=== PATIENT | male | born 1980 | race Caucasian/White ===

== ENCOUNTER 2017-09-29 02:43 | Inpatient (IN) | payer SELFPAY ==
[2017-09-29] MEDS ORDERED: Ondansetron HCl/PF 4 MG/2 ML Vial IVP PRN (03:47)
[2017-09-29 03:48] LABS: Hemoglobin 10.6 g/dL (14.0-18.0); Mean Corpuscular HGB CONC 34.9 g/dL (32.0-36.0); Mean Corpuscular Hemoglobin 33.4 pg (27.0-31.0); Mean Corpuscular Volume 95.6 fL (78.0-98.0); Mean Platelet Volume 8.7 fL (7.4-10.4); Platelet Count 147 thou/uL (130-400); Red Blood Cell (RBC) Count 3.18 mill/uL (4.70-6.10); White Blood Cell (WBC) Count 4.3 thou/uL (4.8-10.8)
[2017-09-29 03:58] LABS: ALT (SGPT) 14 U/L (8-55); AST (SGOT) 13 U/L (5-34); Acetaminophen Less than 6.0 mcg/mL (10.0-30.0); Albumin 3.4 g/dL (3.5-5.0); Alcohol 157 mg/dL (Less than 10); Alkaline Phosphatase 44 U/L (40-150); Anion Gap 11 mmol/L (10-20); BUN (Urea Nitrogen) 9 mg/dL (8.9-20.6); Bilirubin, Total 0.3 mg/dL (0.2-1.2); CK (CPK) 112 U/L (30-200); Calc. Creatinine Clearance 0 mL/min (70-130); Calcium 7.6 mg/dL (7.8-10.44); Carbon Dioxide 24 mmol/L (22-29); Chloride 113 mmol/L (98-107); Estimated GFR-MDRD 79; Globulin 1.8 g/dL (2.4-3.5); Glucose 95 mg/dL (70-105); Potassium 3.5 mmol/L (3.5-5.1); Protein, Total 5.2 g/dL (6.0-8.3); Salicylate Less than 8.0 mg/dL (15.0-30.0); Sodium 144 mmol/L (136-145)
[2017-09-29] MEDS ORDERED: Sodium Chloride 0.9% 1,000 ML IV SCH (04:00)
[2017-09-29 04:19] LABS: Band 3 % (5-11); Eosinophils 1 % (0-10); Lymphocytes 57 % (21-51); MDiff Complete? YES; Monocytes 7 % (0-10); Neutrophil 32 % (42-75)
[2017-09-29 07:19] LABS: Bilirubin Negative (Negative); Blood, Urine Negative (Negative); Clarity CLEAR (Clear); Glucose, Urine (Dipstick) Negative (Negative); Leukocyte Negative (Negative); Nitrite Negative (Negative); Protein, Urine (Dipstick) Negative (Neg-Trace); Specific Gravity, Urine 1.007 (1.002-1.036); Urobilinogen 0.2 mg/dL (0.2-1.0); pH, Urine 6.5 (5.0-9.0)
[2017-09-29 07:31] LABS: Amphetamine Not Detected (NotDetected); Barbiturates Screen Not Detected (NotDetected); Benzodiazepine Screen Not Detected (NotDetected); Cocaine Metabolite Screen Not Detected (NotDetected); Medtox Control Line Valid? VALID (VALID); Medtox Reader # READER 4; Methadone Not Detected (NotDetected); Methamphetamine Not Detected (NotDetected); Opiate Screen Not Detected (NotDetected); Oxycodone Screen Not Detected (NotDetected); Phencyclidine (PCP) Not Detected (NotDetected); THC/Cannabinoid Screen Detected (NotDetected); Tricyclic Screen Not Detected (NotDetected)
[2017-09-29] MEDS ORDERED: Mag-Al 1200 mg/1200 mg/30 ML UDCUP PO PRN (08:23)
[2017-09-29] MEDS ORDERED: Loperamide HCl 2 MG CAP PO PRN (08:23)
[2017-09-29] MEDS ORDERED: Senokot 8.6 MG TAB PO PRN (08:23)
[2017-09-29] MEDS ORDERED: Ondansetron ODT 4 MG TAB PO PRN (08:23)
[2017-09-29] MEDS ORDERED: HYDROcodone/Acetaminophen 5/325 mg Tablet PO PRN (08:23)
[2017-09-29] MEDS ORDERED: Milk Of Magnesia 30 ML UDCUP PO PRN (08:23)
[2017-09-29] MEDS ORDERED: Acetaminophen 325 MG TAB PO PRN (08:23)
[2017-09-29] MEDS ORDERED: Enoxaparin Sodium 40 MG/0.4 ML SYRINGE SC SCH (09:00)
[2017-09-29] MEDS ORDERED: Cyanocobalamin (Vitamin B-12) 1,000 MCG TAB PO SCH (09:00)
[2017-09-29] MEDS ORDERED: Famotidine 20 MG TAB PO SCH (09:00)
[2017-09-29] MEDS ORDERED: Folic Acid 1 MG TAB PO SCH (09:00)
[2017-09-29] MEDS ORDERED: Famotidine 20 MG TAB ONE ×2 (09:45→22:32)
[2017-09-29] MEDS ORDERED: Folic Acid 1 MG TAB ONE (09:45)
--- NOTE | 2017-09-29 10:31 | HP ---
PRIMARY CARE PHYSICIAN: The patient does not have any primary care physician. He is only following [facility]. REASON FOR ADMISSION: Altered mental status, suspected drug overdose, suspected suicidal attempt. HISTORY OF PRESENT ILLNESS: A 37-year-old male who has underlying history of psychiatric disorder. Based on medications, it seems like he has anxiety, depression and bipolar disorder who was brought t o emergency room last night for drug overdose and suspected a suicidal attempt. He was transferred f [facility] as per ED report. Paramedics reported that he took unknown amount of pil ls. When he was brought to Emergency Room, he had smell of alcohol and he was somnolent. He was not able to provide any history. The patient was hemodynamically stable and he was planned for admissio n to medical ICU for close monitoring. I saw this patient around 8:00 a.m., at that time, patient wa s alert, awake, follows command and I specifically asked how many pills he took. He reported that he only took a couple of extra of his prescription medicine which he was given by his psychiatrist. He denies any excessive overdose of any medications. He denies any suicidal ideation or homicidal idea tion. He does have anxiety and depression, but he feels that with the medicine, he is stable. He uribe s previous history of inpatient psychiatric hospitalization in [place] as well as [place] [facility] in [place] . Currently, patient feels perfectly fine. He reports that before coming to the hospital, he also d rank alcohol. That made him more sleepy and lethargic. He denies any other illicit drug abuse other than marijuana, which he abuses periodically. He denies any UTI symptoms. He denies any cough, chest pain, palpitation, shortness of breath. He d enies any constipation, diarrhea, melena, hematochezia. He denies any headache. He denies any fall. He denies any pain anywhere in his body. He denies any injury. REVIEW OF SYSTEMS: The following complete review of systems was negative, unless otherwise mentioned in the HPI or below: Constitutional: Weight loss or gain, ability to conduct usual activities. Skin: Rash, itching. Eyes: Double vision, pain. ENT/Mouth: Nose bleeding, neck stiffness, pain, tenderness. Cardiovascular: Palpitations, dyspnea on exertion, orthopnea. Respiratory: Shortness of breath, wheezing, cough, hemoptysis, fever or night sweats. Gastrointestinal: Poor appetite, abdominal pain, heartburn, nausea, vomiting, constipation, or diarr hea. Genitourinary: Urgency, frequency, dysuria, nocturia. Musculoskeletal: Pain, swelling. Neurologic/Psychiatric: Anxiety, depression. Allergy/Immunologic: Skin rash, bleeding tendency. Please see my HPI. All other review of systems reviewed and negative except as mentioned in the HPI. PAST MEDICAL HISTORY: History of anxiety, depression, and bipolar disorder, history of alcohol abuse , history of marijuana abuse. PAST PSYCHIATRIC HISTORY: Anxiety, depression, schizoaffective disorder, bipolar disorder. Patient required inpatient psychiatric treatment at [facility] as well as in [facility] in . PAST SURGICAL HISTORY: Reviewed and negative. SOCIAL HISTORY: The patient drinks alcohol almost every day. He smokes cigarettes on variable numbe rs. He also abuses marijuana periodically. He denies any other illicit drug abuse. FAMILY HISTORY: No strong family history of premature coronary artery disease, stroke or cancer. ALLERGIES: No known drug allergy. CURRENT HOME MEDICATIONS: Remeron 15 mg at bedtime, Latuda 20 mg p.o. daily, Prozac 40 mg p.o. morni ng side, Silenor 6 mg at bedtime, divalproex 500 mg twice daily, benztropine 0.5 mg daily, Seroquel 3 00 mg at bedtime, buspirone 7.5 mg twice daily. EMERGENCY ROOM COURSE: Patient was given 4 liters fluid, folic acid, Pepcid 20 mg, thiamine 100 mg a nd vitamin B12. PHYSICAL EXAMINATION: VITAL SIGNS: On arrival, blood pressure 99/52, pulse 86, respiratory rate 18, temperature 98.1, satu ration 95% on 2 liters oxygen. He is also on saturating normal on room air. Weight 57.1 kilograms. GENERAL: Patient is currently alert, oriented, follows commands and answers questions appropriately. HEAD: Normocephalic, atraumatic. EYES: Pupils round, reactive to light. Extraocular muscle intact. ENT: Oropharynx within normal limits. Moist mucous membrane, no oral lesion, no pharyngeal erythema , no exudate. NECK: Supple, no JVD, no thyromegaly, no carotid bruit. No jugular venous distention. LUNGS: Clear to auscultation without any rhonchi or rales. CARDIAC: S1 and S2 regular without any murmur. ABDOMEN: Soft and benign without any tenderness. EXTREMITIES: No edema. Upper extremity passive movements of all joints are normal. Lower extremity passive movements of all joints are normal. BACK: Normal. No CVA tenderness. NEUROLOGIC: The patient is currently alert, awake, arousable, follows command. No focal neurologica l deficits. No cerebellar sign. Plantar bilateral flexor. SKIN: No skin rash. HEMATOLOGICAL SYSTEM: No lymphadenopathy. IMAGING DATA AND SIGNIFICANT LABORATORY DATA: EKG showing normal sinus rhythm, left atrial enlargeme nt. air sampling and monitoring showing sinus rhythm. CBC: WBC 4.3, hemoglobin 10.6, platelet 147. BMP: So dium 144, potassium 3.5, chloride 113, carbon dioxide 24, anion gap 11, BUN 9, creatinine 1.05, gluco se 95, calcium 7.6. LFT: AST 13, ALT 14, alkaline phosphatase 44, albumin 3.4. TSH 0.6784. Urinal ysis normal. Urine drug screen positive for marijuana. Alcohol level 157. Salicylate and Tylenol l evel within normal limits. ASSESSMENT AND PLAN/IMPRESSION: 1. Acute encephalopathy due to possible alcohol intoxication with his prescription medication overdo se, currently resolved. Patient has no suicidal ideation and he did not take any significant amount of medication as well. Per patient, he is back to his baseline and he is medically stable. 2. Alcohol abuse with alcohol intoxication on admission that has been resolved. We will check alcoh ol level again per [facility] region. The patient will be given folic acid, vitamin B12, thiamine, and The ragran upon discharge. All this medication is [id number]. He can buy from over the counter, d oes not need any prescriptions. 3. Cannabis abuse. Counseling given to avoid any kind of illicit drug abuse. 4. Leukopenia, anemia with macrocytosis, likely due to his alcohol abuse. The patient is given coun seling to avoid alcohol abuse as well as patient is also instructed to take over the [id number] folic acid, vitamin B12, thiamine and multivitamin therapy. 5. Drug overdose without suicidal ideation. He took only few medications extra and on top of it, dr antonio hines, that made him more sleepy last night. Currently, he is back to his baseline. He is not suicidal, not homicidal. Per protocol, we will consult [facility]. The patient is medically stable. Bas ed on [facility] decision, we will consider discharge plan either home later on today. 6. Anxiety, depression, bipolar disorder, schizoaffective disorder. Upon discharge, patient will co ntinue all his previous psychiatric medications as mentioned above, Remeron 15 mg, Latuda, fluoxetine , Silenor, divalproex, benztropine, Seroquel and buspirone as per his [facility]. 7. Deep venous thrombosis prophylaxis not needed because we are expecting discharge later on today. 8. Gastrointestinal prophylaxis, Pepcid 20 mg p.o. daily. Patient can take this medication. Also, over the counter. Code status: The patient is FULL CODE. Patient does not have any surrogate decision maker. Disposition plan likely later on today. DATE OF ADMISSION: 09/29/2017 at 3:39 p.m. DATE OF DISCHARGE: 09/29/2017 DISCHARGE DISPOSITION: Home. PRIMARY DISCHARGE DIAGNOSES: 1. Mild drug overdose with prescription medications. 2. Alcohol abuse with alcohol intoxication, cannabis abuse, suicidal ideation ruled out. SECONDARY DISCHARGE DIAGNOSES: Anxiety, depression, bipolar disorder, schizoaffective disorder, alco hol abuse, cannabis abuse. PRIMARY PROCEDURES/OPERATIONS: None. RADIOLOGICAL INVESTIGATION: None. SIGNIFICANT LABORATORY DATA: WBC 4.3, hemoglobin 10.6, creatinine 1.05. LFT normal, albumin 3.4. U rinalysis normal. Cannabis positive in urine drug screen, alcohol level 157. DISCHARGE MEDICATIONS: Patient will continue below mentioned medication over the counter, does not n eed any prescription. Vitamin B12 1000 mcg p.o. daily, Pepcid 20 mg p.o. b.i.d., folic acid 1 mg p.o . daily, thiamine 100 mg p.o. daily. CONTRAINDICATIONS: None. CODE STATUS: FULL CODE. INPATIENT CONSULTANTS: [facility]. TEST RESULTS PENDING ON DISCHARGE: None. ALLERGY: No known drug allergy. DISCHARGE PLAN: Post hospital, patient will continue to follow up with [facility]. HOSPITAL COURSE: Please see my HPI for further details. The patient was somnolent from effect of al cohol plus excess medication, unknown amount, but per patient, only few and that made him sleepy. He was not able to provide any history. He was more somnolent last night and he was planned for admiss ion to [facility], but this morning he was back to his normal. We cancelled his IMCU admission, we kept hi m for observation. We are trying to admit him to medical floor until MR evaluated him and cleared him for discharge. Overall, patient is medically stable for discharge later on today.
[2017-09-29] MEDS ORDERED: traZODone HCl 50 MG TAB PO PRN (17:23)
[2017-09-30] MEDS ORDERED: Divalproex Sodium DR 500 MG TAB PO SCH ×2 (13:00→21:00)
[2017-09-30] MEDS ORDERED: Benztropine 1 MG TAB PO SCH (13:00)
[2017-09-30] MEDS ORDERED: FLUoxetine HCl 20 MG CAP PO SCH (13:00)
[2017-09-30] MEDS ORDERED: LURASIDONE 20 MG PO SCH (13:15)
[2017-09-30] MEDS ORDERED: busPIRone HCl 5 MG TAB PO SCH ×2 (13:15→21:00)
--- NOTE | 2017-09-30 16:31 | DIS ---
ATTENDING PHSICIAN: Reymundo Michaud M.D. DATE OF ADMISSION: 09/29/2017 DATE OF DISCHARGE: 09/30/2017 ADMITTING DIAGNOSIS: Altered mental status secondary to drug overdose, suspected suicidal attempt. DISCHARGE DIAGNOSIS: Altered mental status secondary to drug overdose, suspected suicidal attempt. HISTORY OF PRESENT ILLNESS AND HOSPITAL COURSE: In brief, this is a 37-year-old white male with unde rlying history of psychiatric disorder has a history of anxiety, depression, and bipolar disorder, br ought to the ER because of the possible overdose, suspected suicidal attempt. He was transferred fro [facility] as per the ED report. As per the ED report, paramedics report that he took unknown judy unt of pills, but he was brought to the ED and had a smell of alcohol and he was somnolent. He was n ot able to provide any history. The patient was monitored overnight and his blood alcohol level did drop to 56 and he has a history of going to inpatient psychiatric hospital in [place] as well as in [facility] and [place]. Currently, the patient feels normal at this time. He admits to drinking alcoho l, which made him more sleepy and lethargic. He denies having any chest pain, shortness of breath, n ausea, vomiting, diarrhea or constipation. The patient was monitored and was medically cleared as there was no evidence of any medical issues co ntributing to his present complaint. He is a high risk for suicides and secondary to his chronic psy chiatric condition and it was suggested to transfer the patient back to inpatient hospitalization fol lowing him at [facility] consult. PHYSICAL EXAMINATION: GENERAL: The patient was seen on the day of discharge, he was alert and oriented. VITAL SIGNS: On the day of discharge blood pressures were 130/88, heart rate is 80, saturation 98%. CARDIOVASCULAR: S1, S2 normal. No murmurs, rubs or gallops. LUNGS: Bilateral air entry was equal. No wheezing, no crackles. ABDOMEN: Soft, nontender. No guarding or rebound tenderness. DISCHARGE MEDICATIONS: Benztropine, buspirone, Depakote 500 mg p.o. b.i.d., doxepin 6 mg at bedtime, famotidine 20 mg p.o. b.i.d., fluoxetine 40 mg p.o. daily, Latuda 20 mg daily, mirtazapine 50 mg at bedtime, Seroquel 300 mg p.o. at bedtime, thiamine 100 mg p.o. daily. DISCHARGE INSTRUCTIONS: Continue activity as tolerated. Continue as per inpatient psychiatry recomm endations. I spent less than 30 minutes with the patient on the day of discharge.
[2017-09-30] MEDS ORDERED: Doxepin Hcl [Silenor] 6 MG PO SCH (21:00)
[2017-09-30] MEDS ORDERED: Mirtazapine 15 MG TAB PO SCH (21:00)
[2017-09-30] MEDS ORDERED: Famotidine 20 MG TAB ONE (23:00)
[2017-10-01] MEDS ORDERED: Benztropine 1 MG TAB PO SCH (09:00)
[2017-10-01] MEDS ORDERED: LURASIDONE 20 MG PO SCH (09:00)
[2017-10-01] MEDS ORDERED: FLUoxetine HCl 20 MG CAP PO SCH (09:00)
--- NOTE | 2017-10-03 13:43 | EKG ---
Test Reason : OVERDOSE Blood Pressure : / mmHG Vent. Rate : 088 BPM Atrial Rate : 088 BPM P-R Int : 152 ms QRS Dur : 086 ms QT Int : 360 ms P-R-T Axes : 070 057 047 degrees QTc Int : 435 ms Normal sinus rhythm Left atrial enlargement Borderline ECG Confirmed by ROSE MARY MAYORGA, JOSE ALFREDO Aguayo ([id number]), technical writer and editor SYDNEY GREEN ([id number]) on 10/03/2017 1:43:02 PM Referred By: Confirmed By:JOSE ALFREDO BAZZI MD
== END 2017-09-30 11:13 | DRG 917 ==
LOC: ERS 02:43 → ERHOLD 03:39
PROVIDERS: ADMIT Hospitalist; ATTEND Hospitalist
DX: T50.901A Poisoning by unspecified drugs, medicaments and biological substances, accidental (unintentional), initial encounter (principal); G92 Toxic encephalopathy; F10.129 Alcohol abuse with intoxication, unspecified; Y90.6 Blood alcohol level of 120-199 mg/100 ml; D72.819 Decreased white blood cell count, unspecified; D53.9 Nutritional anemia, unspecified; F31.9 Bipolar disorder, unspecified; F25.9 Schizoaffective disorder, unspecified; F17.210 Nicotine dependence, cigarettes, uncomplicated; Z79.899 Other long term (current) drug therapy
CPT/HCPCS: 36415; 80053; 80306; 80307; 81003; 82550; 84443; 85025; 93005; 96360; 96361; 99406

== ENCOUNTER 2018-06-11 17:46 | Emergency (ER) | payer SELFPAY ==
[2018-06-11] MEDS ORDERED: Ketorolac Tromethamine 30 MG/ML VIAL ONE (18:54)
[2018-06-11] MEDS ORDERED: diphenhydrAMINE 50 MG/ML VIAL ONE (18:54)
[2018-06-11] MEDS ORDERED: Ondansetron PF 4 MG/2 ML Vial ONE (18:54)
[2018-06-11] MEDS ORDERED: Meclizine HCl 25 MG TAB ONE (18:54)
[2018-06-11 18:56] LABS: #Basophils 0.1 thou/uL (0.0-0.2); #Eosinphils 0.2 thou/uL (0.0-0.7); #Lymphocytes 2.4 thou/uL (1.20-3.40); #Monocytes 0.5 thou/uL (0.11-0.59); #Neutrophils 3.2 thou/uL (1.40-6.50); %Basophils 1.4 % (0.0-1.0); %Lymphocytes 37.7 % (21.0-51.0); %Monocytes 7.9 % (0.0-10.0); Hemoglobin 14.2 g/dL (14.0-18.0); Mean Corpuscular HGB CONC 34.3 g/dL (32.0-36.0); Mean Corpuscular Hemoglobin 32.8 pg (27.0-31.0); Mean Corpuscular Volume 95.7 fL (78.0-98.0); Mean Platelet Volume 10.7 fL (7.4-10.4); Platelet Count 132 thou/uL (130-400); RBC Distribution Width 11.9 % (11.5-14.5); Red Blood Cell (RBC) Count 4.32 mill/uL (4.70-6.10); White Blood Cell (WBC) Count 6.3 thou/uL (4.8-10.8)
[2018-06-11] MEDS ORDERED: Ketorolac Tromethamine 30 MG/ML VIAL IVP SCH (19:00)
[2018-06-11] MEDS ORDERED: Meclizine HCl 25 MG TAB PO SCH (19:00)
[2018-06-11] MEDS ORDERED: diphenhydrAMINE 50 MG/ML VIAL IVP SCH (19:00)
[2018-06-11] MEDS ORDERED: Ondansetron PF 4 MG/2 ML Vial SLOW IVP SCH (19:00)
[2018-06-11] MEDS ORDERED: Sodium Chloride 0.9% 1,000 ML IV SCH (19:00)
[2018-06-11 19:17] LABS: ALT (SGPT) 16 U/L (8-55); AST (SGOT) 14 U/L (5-34); Albumin 4.6 g/dL (3.5-5.0); Alkaline Phosphatase 60 U/L (40-150); Anion Gap 12 mmol/L (10-20); BUN (Urea Nitrogen) 20 mg/dL (8.9-20.6); Bilirubin, Total 0.6 mg/dL (0.2-1.2); Calc. Creatinine Clearance 0 mL/min (70-130); Calcium 9.6 mg/dL (7.8-10.44); Carbon Dioxide 26 mmol/L (22-29); Chloride 106 mmol/L (98-107); Estimated GFR-MDRD 77; Globulin 2.7 g/dL (2.4-3.5); Glucose 87 mg/dL (70-105); Protein, Total 7.3 g/dL (6.0-8.3); Sodium 140 mmol/L (136-145)
[2018-06-11 19:26] LABS: Bilirubin Negative (Negative); Blood, Urine Negative (Negative); Clarity CLEAR (Clear); Glucose, Urine (Dipstick) Negative (Negative); Leukocyte Negative (Negative); Nitrite Negative (Negative); Protein, Urine (Dipstick) Negative (Neg-Trace); Specific Gravity, Urine 1.016 (1.002-1.036)
== END 2018-06-11 20:15 | disposition home or self-care (01) ==
LOC: ERS 17:46
DX: J30.9 Allergic rhinitis, unspecified (principal); J32.9 Chronic sinusitis, unspecified; F31.9 Bipolar disorder, unspecified; F41.9 Anxiety disorder, unspecified; F17.210 Nicotine dependence, cigarettes, uncomplicated; F25.9 Schizoaffective disorder, unspecified; Z79.899 Other long term (current) drug therapy
CPT/HCPCS: 80053; 81003; 85025; 94760; 96361; 96374; 96375; J1200; J1885; J2405

== ENCOUNTER 2018-06-12 02:07 | Emergency (ER) | payer SELFPAY ==
[2018-06-12] MEDS ORDERED: Lorazepam 2 MG/ML VIAL ONE (02:51)
[2018-06-12 03:20] LABS: Hemoglobin 12.3 g/dL (14.0-18.0); Mean Corpuscular Hemoglobin 32.8 pg (27.0-31.0); Mean Corpuscular Volume 96.3 fL (78.0-98.0); RBC Distribution Width 11.8 % (11.5-14.5); Red Blood Cell (RBC) Count 3.75 mill/uL (4.70-6.10)
[2018-06-12 03:28] LABS: Amphetamine Not Detected (NotDetected); Barbiturates Screen Not Detected (NotDetected); Benzodiazepine Screen Not Detected (NotDetected); Cocaine Metabolite Screen Not Detected (NotDetected); Medtox Control Line Valid? VALID (VALID); Medtox Reader # READER 1; Methadone Not Detected (NotDetected); Methamphetamine Not Detected (NotDetected); Opiate Screen Not Detected (NotDetected); Oxycodone Screen Not Detected (NotDetected); Phencyclidine (PCP) Not Detected (NotDetected); THC/Cannabinoid Screen Not Detected (NotDetected); Tricyclic Screen Not Detected (NotDetected)
[2018-06-12] MEDS ORDERED: Valproic Acid 250 MG CAP PO SCH (03:30)
[2018-06-12 03:40] LABS: Acetaminophen Less than 6.0 mcg/mL (10.0-30.0); Alcohol 287 mg/dL (Less than 10); Salicylate Less than 8.0 mg/dL (15.0-30.0)
[2018-06-12 03:42] LABS: ALT (SGPT) 14 U/L (8-55); AST (SGOT) 13 U/L (5-34); Albumin 3.8 g/dL (3.5-5.0); Alkaline Phosphatase 46 U/L (40-150); Anion Gap 13 mmol/L (10-20); BUN (Urea Nitrogen) 10 mg/dL (8.9-20.6); Bilirubin, Total 0.7 mg/dL (0.2-1.2); Calc. Creatinine Clearance 0 mL/min (70-130); Calcium 7.6 mg/dL (7.8-10.44); Carbon Dioxide 20 mmol/L (22-29); Chloride 110 mmol/L (98-107); Estimated GFR-MDRD Greater than 90; Globulin 2.1 g/dL (2.4-3.5); Glucose 89 mg/dL (70-105); Potassium 3.6 mmol/L (3.5-5.1); Protein, Total 5.9 g/dL (6.0-8.3); Sodium 139 mmol/L (136-145)
[2018-06-12 03:46] LABS: #Basophils 0.1 thou/uL (0.0-0.2); #Eosinphils 0.2 thou/uL (0.0-0.7); #Monocytes 0.4 thou/uL (0.11-0.59); #Neutrophils 2.4 thou/uL (1.40-6.50); %Basophils 1.6 % (0.0-1.0); %Eosinophils 2.7 % (0.0-10.0); %Lymphocytes 49.5 % (21.0-51.0); %Monocytes 6.1 % (0.0-10.0); %Neutrophils 40.1 % (42.0-75.0); Mean Platelet Volume 10.1 fL (7.4-10.4); Platelet Count 107 thou/uL (130-400); Platelet Morphology Comment Appears Decreased; RBC Morphology Normal
== END 2018-06-12 09:58 | disposition home or self-care (01) ==
LOC: ERS 02:07
DX: F10.129 Alcohol abuse with intoxication, unspecified (principal); Y90.8 Blood alcohol level of 240 mg/100 ml or more; F31.9 Bipolar disorder, unspecified; F41.9 Anxiety disorder, unspecified; F25.9 Schizoaffective disorder, unspecified; F17.210 Nicotine dependence, cigarettes, uncomplicated; Z79.4 Long term (current) use of insulin; Z79.899 Other long term (current) drug therapy
CPT/HCPCS: 36415; 80053; 80164; 80306; 80307; 83605; 85025; 93005; 96361; 96374; J2060

== ENCOUNTER 2019-08-29 20:55 | Emergency (ER) | payer SELFPAY ==
[2019-08-29 21:27] LABS: #Basophils 0.1 thou/uL (0.0-0.2); #Eosinphils 0.3 thou/uL (0.0-0.7); #Lymphocytes 3.2 thou/uL (1.20-3.40); #Monocytes 0.6 thou/uL (0.11-0.59); #Neutrophils 2.5 thou/uL (1.40-6.50); %Basophils 1.4 % (0.0-1.0); %Eosinophils 4.6 % (0.0-10.0); %Lymphocytes 47.6 % (21.0-51.0); %Monocytes 9.5 % (0.0-10.0); %Neutrophils 36.9 % (42.0-75.0); Hemoglobin 15.4 g/dL (14.0-18.0); Mean Corpuscular HGB CONC 34.3 g/dL (32.0-36.0); Mean Corpuscular Volume 96.2 fL (78.0-98.0); Mean Platelet Volume 8.7 fL (7.4-10.4); Platelet Count 225 thou/uL (130-400); RBC Distribution Width 12.3 % (11.5-14.5); Red Blood Cell (RBC) Count 4.66 mill/uL (4.70-6.10); White Blood Cell (WBC) Count 6.7 thou/uL (4.8-10.8)
[2019-08-29] MEDS ORDERED: Ketorolac Tromethamine 30 MG/ML VIAL ONE (21:34)
[2019-08-29 21:55] LABS: ALT (SGPT) 16 U/L (8-55); AST (SGOT) 17 U/L (5-34); Albumin 4.9 g/dL (3.5-5.0); Alkaline Phosphatase 79 U/L (40-110); Anion Gap 13 mmol/L (10-20); BUN (Urea Nitrogen) 7 mg/dL (8.9-20.6); Bilirubin, Total 0.4 mg/dL (0.2-1.2); Calc. Creatinine Clearance 0 mL/min (70-130); Calcium 9.4 mg/dL (7.8-10.44); Carbon Dioxide 27 mmol/L (22-29); Chloride 102 mmol/L (98-107); Estimated GFR-MDRD Greater than 90; Globulin 3.2 g/dL (2.4-3.5); Glucose 95 mg/dL (70-105); Potassium 4.2 mmol/L (3.5-5.1); Protein, Total 8.1 g/dL (6.0-8.3); Sodium 138 mmol/L (136-145)
--- NOTE | 2019-08-30 07:36 | RAD ---
CHEST AP: History: Chest pain x 1 week. FINDINGS: Heart size and mediastinum are within normal limits. The lungs are clear of infiltrates. IMPRESSION: No active intrathoracic disease. POS: [facility]
--- NOTE | 2019-08-30 09:01 | RAD ---
RIGHT WRIST THREE VIEWS: History: Wrist pain. FINDINGS: There are no signs of fracture, dislocation, or other bony findings. IMPRESSION: Negative right wrist. POS: [facility]
--- NOTE | 2019-09-03 17:30 | EKG ---
Test Reason : Blood Pressure : / mmHG Vent. Rate : 095 BPM Atrial Rate : 095 BPM P-R Int : 162 ms QRS Dur : 076 ms QT Int : 330 ms P-R-T Axes : 073 066 057 degrees QTc Int : 414 ms Normal sinus rhythm Possible Left atrial enlargement Borderline ECG Confirmed by BREANA WISE M.D. ([id number]), visual effects editor SYDNEY GREEN ([id number]) on 09/03/2019 5:29:48 PM Referred By: Confirmed By:BREANA WISE M.D.
== END 2019-08-29 23:11 | disposition home or self-care (01) ==
LOC: ERS 20:55
DX: R07.89 Other chest pain (principal); M25.531 Pain in right wrist; F41.9 Anxiety disorder, unspecified; F31.9 Bipolar disorder, unspecified; F25.9 Schizoaffective disorder, unspecified; F17.210 Nicotine dependence, cigarettes, uncomplicated; Z79.899 Other long term (current) drug therapy
CPT/HCPCS: 71045; 80053; 83690; 84484; 85025; 93005; 96374; J1885

== ENCOUNTER 2019-12-15 10:33 | Emergency (ER) | payer SELFPAY ==
[2019-12-15] MEDS ORDERED: Lorazepam 2 MG/ML VIAL ONE ×2 (22:43→23:03)
[2019-12-15] MEDS ORDERED: levETIRAcetam in NS 100 ML ONE (22:44)
[2019-12-16 00:44] LABS: Amphetamine Not Detected (NotDetected); Barbiturates Screen Not Detected (NotDetected); Benzodiazepine Screen Not Detected (NotDetected); Cocaine Metabolite Screen Not Detected (NotDetected); Medtox Control Line Valid? VALID (VALID); Medtox Reader # READER 4; Methadone Not Detected (NotDetected); Methamphetamine Not Detected (NotDetected); Opiate Screen Not Detected (NotDetected); Oxycodone Screen Not Detected (NotDetected); Phencyclidine (PCP) Not Detected (NotDetected); THC/Cannabinoid Screen Not Detected (NotDetected); Tricyclic Screen Not Detected (NotDetected)
[2019-12-16 01:03] LABS: #Basophils 0.1 thou/uL (0.0-0.2); #Eosinphils 0.2 thou/uL (0.0-0.7); #Lymphocytes 2.8 thou/uL (1.20-3.40); #Monocytes 0.5 thou/uL (0.11-0.59); #Neutrophils 3.1 thou/uL (1.40-6.50); %Basophils 1.8 % (0.0-1.0); %Eosinophils 3.6 % (0.0-10.0); %Lymphocytes 41.6 % (21.0-51.0); Hemoglobin 14.2 g/dL (14.0-18.0); Mean Corpuscular HGB CONC 35.5 g/dL (32.0-36.0); Mean Corpuscular Hemoglobin 34.2 pg (27.0-31.0); Mean Corpuscular Volume 96.3 fL (78.0-98.0); Mean Platelet Volume 8.9 fL (7.4-10.4); Platelet Count 194 thou/uL (130-400); RBC Distribution Width 12.1 % (11.5-14.5); Red Blood Cell (RBC) Count 4.14 mill/uL (4.70-6.10); White Blood Cell (WBC) Count 6.8 thou/uL (4.8-10.8)
[2019-12-16 01:50] LABS: Lactic Acid 3.5 mmol/L (0.5-2.2)
[2019-12-16 01:51] LABS: Anion Gap 19 mmol/L (10-20); BUN (Urea Nitrogen) 9 mg/dL (8.9-20.6); Calc. Creatinine Clearance 0 mL/min (70-130); Carbon Dioxide 19 mmol/L (22-29); Chloride 107 mmol/L (98-107); Estimated GFR-MDRD Greater than 90; Glucose 84 mg/dL (70-105); Potassium 3.7 mmol/L (3.5-5.1); Sodium 141 mmol/L (136-145)
[2019-12-16 01:52] LABS: ALT (SGPT) 10 U/L (8-55); AST (SGOT) 16 U/L (5-34); Acetaminophen Less than 6.0 mcg/mL (10.0-30.0); Albumin 4.3 g/dL (3.5-5.0); Alkaline Phosphatase 67 U/L (40-110); Bilirubin, Total 0.6 mg/dL (0.2-1.2); Globulin 2.6 g/dL (2.4-3.5); Protein, Total 6.9 g/dL (6.0-8.3)
[2019-12-16 01:53] LABS: Alcohol 212 mg/dL (Less than 10); Salicylate Less than 8.0 mg/dL (15.0-30.0)
--- NOTE | 2019-12-24 13:25 | EKG ---
Test Reason : Blood Pressure : / mmHG Vent. Rate : 094 BPM Atrial Rate : 094 BPM P-R Int : 148 ms QRS Dur : 084 ms QT Int : 354 ms P-R-T Axes : 073 065 063 degrees QTc Int : 442 ms Normal sinus rhythm Normal ECG Confirmed by AIMEE LEON DO ([id number]), story editor SYDNEY GREEN ([id number]) on 12/24/2019 1:25:06 PM Referred By: Confirmed By:AIMEE LEON DO
== END 2019-12-16 00:15 | disposition home or self-care (01) ==
LOC: ERS 10:33
DX: G40.909 Epilepsy, unspecified, not intractable, without status epilepticus (principal); F10.129 Alcohol abuse with intoxication, unspecified; F31.9 Bipolar disorder, unspecified; F20.9 Schizophrenia, unspecified
CPT/HCPCS: 80053; 80306; 80307; 83605; 85025; 93005; 96374; 96375; J1953; J2060

== ENCOUNTER 2020-07-28 00:54 | Emergency (ER) | payer SELFPAY ==
[2020-07-28] MEDS ORDERED: Succinylcholine 200 MG/10 ml SYRINGE FS ONE (00:58)
[2020-07-28] MEDS ORDERED: Lorazepam 2 MG/ML VIAL ONE ×2 (00:58→04:19)
[2020-07-28] MEDS ORDERED: Haloperidol Lactate 5 MG/ML VIAL ONE (01:03)
[2020-07-28] MEDS ORDERED: Rocuronium Bromide 10 MG/ML (10ML VIAL) ONE (01:07)
[2020-07-28] MEDS ORDERED: Propofol 1,000 MG/100 ML VIAL IV ONE ×2 (01:07→06:00)
[2020-07-28 01:31] LABS: #Basophils 0.1 thou/uL (0.0-0.2); #Eosinphils 0.4 thou/uL (0.0-0.7); #Monocytes 0.6 thou/uL (0.11-0.59); #Neutrophils 4.1 thou/uL (1.40-6.50); %Basophils 1.3 % (0.0-1.0); %Eosinophils 4.3 % (0.0-10.0); %Monocytes 5.4 % (0.0-10.0); %Neutrophils 39.9 % (42.0-75.0); Hemoglobin 13.3 g/dL (14.0-18.0); Mean Corpuscular HGB CONC 35.5 g/dL (32.0-36.0); Mean Corpuscular Hemoglobin 32.9 pg (27.0-31.0); Mean Corpuscular Volume 92.8 fL (78.0-98.0); Mean Platelet Volume 9.3 fL (7.4-10.4); Platelet Count 191 thou/uL (130-400); RBC Distribution Width 11.7 % (11.5-14.5); Red Blood Cell (RBC) Count 4.04 mill/uL (4.70-6.10); White Blood Cell (WBC) Count 10.2 thou/uL (4.8-10.8)
[2020-07-28 01:38] LABS: pH, Arterial 7.43 (7.35-7.45)
[2020-07-28 01:39] LABS: Actual Bicarbonate (HCO3a) 19.2 mEq/L (22-28); CO2 Tension 29.7 mmHg (35.0-45.0); Carboxyhemoglobin (COHb) 4.2 gm% (0.0-3.0); Hemoglobin (Hb) 13.3 g/dL (14.0-18.0)
[2020-07-28 01:40] LABS: Calcium, Ionized (arterial) 1.12 mmol/L (1.12-1.30)
[2020-07-28 01:41] LABS: ALV-art Gradient -69.625 mmHg (0-20); Analyzer IN Cardio ER; Puncture Site RRA
[2020-07-28 01:48] LABS: Acetaminophen Less than 6.0 mcg/mL (10.0-30.0); Alcohol 254 mg/dL (Less than 10); CK (CPK) 205 U/L (30-200); Salicylate Less than 8.0 mg/dL (15.0-30.0)
[2020-07-28 01:50] LABS: ALT (SGPT) 16 U/L (8-55); AST (SGOT) 20 U/L (5-34); Albumin 4.5 g/dL (3.5-5.0); Alkaline Phosphatase 68 U/L (40-110); Anion Gap 18 mmol/L (10-20); BUN (Urea Nitrogen) 13 mg/dL (8.9-20.6); Bilirubin, Total 0.6 mg/dL (0.2-1.2); Calc. Creatinine Clearance 0 mL/min (70-130); Calcium 9.1 mg/dL (7.8-10.44); Carbon Dioxide 21 mmol/L (22-29); Chloride 102 mmol/L (98-107); Globulin 3.1 g/dL (2.4-3.5); Glucose 94 mg/dL (70-105); Potassium 3.5 mmol/L (3.5-5.1); Protein, Total 7.6 g/dL (6.0-8.3); Sodium 137 mmol/L (136-145)
[2020-07-28 02:05] LABS: Amphetamine Not Detected (NotDetected); Barbiturates Screen Not Detected (NotDetected); Benzodiazepine Screen Not Detected (NotDetected); Cocaine Metabolite Screen Not Detected (NotDetected); Medtox Control Line Valid? VALID (VALID); Medtox Reader # READER 4; Methadone Not Detected (NotDetected); Methamphetamine Not Detected (NotDetected); Opiate Screen Not Detected (NotDetected); Oxycodone Screen Not Detected (NotDetected); Phencyclidine (PCP) Not Detected (NotDetected); THC/Cannabinoid Screen Detected (NotDetected); Tricyclic Screen Not Detected (NotDetected)
[2020-07-28] MEDS ORDERED: Fentanyl 100 MCG/2 ML VIAL ONE (02:10)
[2020-07-28] MEDS ORDERED: levETIRAcetam in NS 100 ML ONE (02:28)
[2020-07-28] MEDS ORDERED: Fentanyl CADD 100 ML IV SCH (02:30)
[2020-07-28 03:15] LABS: SARS-CoV-2 NAA Rapid Test Not Detected (NotDetected)
[2020-07-28] MEDS ORDERED: LEVETIRACETAM IVPB SCH ×2 (04:45)
[2020-07-28] MEDS ORDERED: SODIUM CHLORIDE 0.9% IVPB SCH ×2 (04:45)
[2020-07-28 05:13] LABS: Lactic Acid 4.9 mmol/L (0.5-2.2)
== END 2020-07-28 06:18 | disposition short-term general hospital (02) ==
LOC: ERS 00:54
DX: G40.909 Epilepsy, unspecified, not intractable, without status epilepticus (principal); F10.129 Alcohol abuse with intoxication, unspecified; Z79.899 Other long term (current) drug therapy
CPT/HCPCS: 31500; 36415; 36416; 36600; 51702; 70450; 71045; 80053; 80306; 80307; 82550; 82805; 83605; 84443; 84484; 85025; 93005; 94760; 96365; 96366; 96368; 96372; 96375; 96376; J1630; J1953; J2060; J2704; J3010; J3490; J7050; U0002

== ENCOUNTER 2020-07-31 12:02 | Emergency (ER) | payer SELFPAY ==
[2020-07-31 12:44] LABS: #Eosinphils 0.1 thou/uL (0.0-0.7); #Lymphocytes 1.2 thou/uL (1.20-3.40); #Monocytes 0.4 thou/uL (0.11-0.59); #Neutrophils 2.5 thou/uL (1.40-6.50); %Basophils 0.6 % (0.0-1.0); %Eosinophils 3.1 % (0.0-10.0); %Lymphocytes 28.6 % (21.0-51.0); %Monocytes 9.6 % (0.0-10.0); %Neutrophils 58.1 % (42.0-75.0); Hemoglobin 12.4 g/dL (14.0-18.0); Mean Corpuscular HGB CONC 35.5 g/dL (32.0-36.0); Mean Platelet Volume 9.7 fL (7.4-10.4); Platelet Count 159 thou/uL (130-400); RBC Distribution Width 11.4 % (11.5-14.5); Red Blood Cell (RBC) Count 3.77 mill/uL (4.70-6.10); White Blood Cell (WBC) Count 4.3 thou/uL (4.8-10.8)
[2020-07-31] MEDS ORDERED: Ondansetron PF 4 MG/2 ML Vial ONE (12:54)
[2020-07-31] MEDS ORDERED: Aspirin Chewable 81 MG TAB ONE (12:54)
[2020-07-31] MEDS ORDERED: Meclizine HCl 25 MG TAB ONE (12:54)
[2020-07-31 12:58] LABS: ALT (SGPT) 15 U/L (8-55); AST (SGOT) 14 U/L (5-34); Alkaline Phosphatase 58 U/L (40-110); Anion Gap 12 mmol/L (10-20); BUN (Urea Nitrogen) 9 mg/dL (8.9-20.6); Bilirubin, Total 0.9 mg/dL (0.2-1.2); Calc. Creatinine Clearance 0 mL/min (70-130); Calcium 8.8 mg/dL (7.8-10.44); Carbon Dioxide 26 mmol/L (22-29); Globulin 2.6 g/dL (2.4-3.5); Glucose 173 mg/dL (70-105); Lipase 10 U/L (8-78); Protein, Total 6.6 g/dL (6.0-8.3); Sodium 139 mmol/L (136-145)
[2020-07-31 12:59] LABS: Acetaminophen Less than 6.0 mcg/mL (10.0-30.0); Alcohol Less than 10 mg/dL (Less than 10); Salicylate Less than 8.0 mg/dL (15.0-30.0)
[2020-07-31 13:02] LABS: Chloride 105 mmol/L (98-107); Potassium 3.8 mmol/L (3.5-5.1)
[2020-07-31 13:46] LABS: Bilirubin Negative (Negative); Blood, Urine Negative (Negative); Clarity Clear (Clear); Glucose, Urine (Dipstick) Normal (Negative); Ketone, Urine 10 mg/dL (Negative); Leukocyte Negative Leu/uL (Negative); Nitrite Negative (Negative); Protein, Urine (Dipstick) Negative (Neg-Trace); Specific Gravity, Urine 1.007 (1.002-1.036); Urobilinogen Normal mg/dL (Less than 2); pH, Urine 6.5 (5.0-9.0)
[2020-07-31 13:56] LABS: Cocaine Metabolite Screen Not Detected (NotDetected); Medtox Reader # READER 4; Phencyclidine (PCP) Not Detected (NotDetected); THC/Cannabinoid Screen Detected (NotDetected)
[2020-07-31 13:57] LABS: Amphetamine Not Detected (NotDetected); Barbiturates Screen Not Detected (NotDetected); Benzodiazepine Screen Detected (NotDetected); Medtox Control Line Valid? VALID (VALID); Methadone Not Detected (NotDetected); Methamphetamine Not Detected (NotDetected); Opiate Screen Not Detected (NotDetected); Oxycodone Screen Not Detected (NotDetected); Tricyclic Screen Not Detected (NotDetected)
== END 2020-07-31 16:24 | disposition home or self-care (01) ==
LOC: ERS 12:02
DX: E86.0 Dehydration (principal); G40.909 Epilepsy, unspecified, not intractable, without status epilepticus; F17.210 Nicotine dependence, cigarettes, uncomplicated
CPT/HCPCS: 70450; 71045; 80053; 80306; 80307; 81003; 83690; 84484; 85025; 93005; 96374; J2405

== ENCOUNTER 2022-09-26 01:13 | Emergency (ER) | payer SELFPAY ==
[2022-09-26] MEDS ORDERED: LORazepam 2 MG/ML SYR.(CARPUJECT) ONE ×2 (01:22→03:02)
[2022-09-26] MEDS ORDERED: levETIRAcetam 500 MG/5 ML VIAL ONE ×2 (01:22→01:26)
[2022-09-26] MEDS ORDERED: Thiamine HCl 200 MG/2 ML VIAL SLOW IVP SCH (01:45)
[2022-09-26 02:20] LABS: #Eosinphils 0.1 thou/uL (0.0-0.7); #Monocytes 0.5 thou/uL (0.11-0.59); #Neutrophils 3.7 thou/uL (1.40-6.50); %Basophils 0.7 % (0.0-1.0); %Lymphocytes 28.3 % (21.0-51.0); %Monocytes 7.9 % (0.0-10.0); %Neutrophils 60.8 % (42.0-75.0); Hemoglobin 13.7 g/dL (14.0-18.0); Mean Corpuscular HGB CONC 34.3 g/dL (32.0-36.0); Mean Corpuscular Hemoglobin 31.9 pg (27.0-31.0); Mean Platelet Volume 13.1 fL (7.4-10.4); Platelet Count 152 10x3/uL (130-400); RBC Distribution Width 12.9 % (11.5-14.5); White Blood Cell (WBC) Count 6.1 10x3/uL (4.8-10.8)
[2022-09-26 02:46] LABS: ALT (SGPT) 15 U/L (8-55); AST (SGOT) 17 U/L (5-34); Albumin 4.2 g/dL (3.5-5.0); Alkaline Phosphatase 61 U/L (40-110); Anion Gap 18 mmol/L (10-20); BUN (Urea Nitrogen) 14 mg/dL (8.9-20.6); Bilirubin, Total 0.4 mg/dL (0.2-1.2); Calc. Creatinine Clearance 0 mL/min (70-130); Calcium 8.6 mg/dL (7.8-10.44); Carbon Dioxide 20 mmol/L (22-29); Chloride 107 mmol/L (98-107); Estimated GFR 78; Globulin 2.6 g/dL (2.4-3.5); Glucose 105 mg/dL (70-105); Potassium 3.4 mmol/L (3.5-5.1); Protein, Total 6.8 g/dL (6.0-8.3); Sodium 142 mmol/L (136-145)
[2022-09-26 02:48] LABS: Acetaminophen Less than 10 mcg/mL (10.0-30.0); Alcohol 161.7 mg/dL (Less than 10); Magnesium 1.9 mg/dL (1.6-2.6); Salicylate Less than 8.0 mg/dL (15.0-30.0)
== END 2022-09-26 06:18 | disposition short-term general hospital (02) ==
LOC: ERS 01:13
DX: G40.911 Epilepsy, unspecified, intractable, with status epilepticus (principal); F10.129 Alcohol abuse with intoxication, unspecified
CPT/HCPCS: 36415; 70450; 80053; 80307; 83735; 84443; 84484; 85025; 93005; 96365; 96375; 96376; J1953; J2060; J3411

== ENCOUNTER 2023-11-30 14:11 | Emergency (ER) | payer BC ==
[2023-11-30 14:58] LABS: #Basophils 0.04 10x3/uL (0.0-0.2); %Basophils 0.5 % (0.0-1.0); %Lymphocytes 30.3 % (21.0-51.0); %Monocytes 8.2 % (0.0-10.0); %Neutrophils 57.3 % (42.0-75.0); Hematocrit 40.2 % (42.0-52.0); Hemoglobin 13.8 g/dL (14.0-18.0); Mean Corpuscular HGB CONC 34.3 g/dL (32.0-36.0); Mean Corpuscular Hemoglobin 33.1 pg (27.0-31.0); Mean Corpuscular Volume 96.4 fL (78.0-98.0); Mean Platelet Volume 10.2 fL (7.4-10.4); Platelet Count 249 10x3/uL (130-400); Red Blood Cell (RBC) Count 4.17 mill/uL (4.70-6.10)
[2023-11-30 15:19] LABS: ALT (SGPT) 24 U/L (8-55); AST (SGOT) 18 U/L (5-34); Albumin 3.8 g/dL (3.5-5.0); Alkaline Phosphatase 69 U/L (40-110); Anion Gap 10 mmol/L (10-20); BUN (Urea Nitrogen) 21 mg/dL (8.9-20.6); Bilirubin, Total 0.6 mg/dL (0.2-1.2); Calc. Creatinine Clearance 0 mL/min (70-130); Calcium 9.3 mg/dL (7.8-10.44); Carbon Dioxide 25 mmol/L (22-29); Chloride 105 mmol/L (98-107); Estimated GFR 84; Globulin 3.3 g/dL (2.4-3.5); Glucose 101 mg/dL (70-105); Potassium 4.1 mmol/L (3.5-5.1); Protein, Total 7.1 g/dL (6.0-8.3); Sodium 136 mmol/L (136-145)
[2023-11-30] MEDS ORDERED: Ketorolac Tromethamine 30 MG (1 mL) VIAL ONE (19:51)
[2023-12-01 11:14] LABS: Syphilis Antibody Nonreactive (Nonreactive); Syphilis Antibody Index 0.05 S/CO (<1.00 Non-Reactive)
== END 2023-11-30 22:07 | disposition home or self-care (01) ==
LOC: ERS 14:11
DX: R21 Rash and other nonspecific skin eruption (principal); F17.210 Nicotine dependence, cigarettes, uncomplicated
CPT/HCPCS: 36415; 80053; 85025; 86780; 96372; 99283; J1885